=== PATIENT | female | born 1965 | race Caucasian/White ===

== ENCOUNTER 2017-06-26 19:01 | Emergency (ER) | payer SELFPAY ==
[~2017-06-26 19:01] MED LIST: BYST10TA2 PO; CLON.1 PO; MECL12.574 PO; VENTAER INH; ZOFR4TAB3 SL
[2017-06-26 19:13] VITALS: BP 140/67; PULSE 93; RESP 20; TEMP 97.7; O2SAT 98
[2017-06-26] MEDS ORDERED: BYST10TA2 PO (19:29)
[2017-06-26] MEDS ORDERED: CLON0.1T PO (19:29)
[2017-06-26] MEDS ORDERED: ONDANSETRON ODT 4 MG TAB PO ONE (20:15)
[2017-06-26] MEDS ORDERED: ACETAMINOPHEN/HYDROcodone 325 MG/5 MG TAB PO ONE (20:15)
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
[2017-06-26] MEDS ORDERED: ROBA500T PO (21:22)
[2017-06-26] MEDS ORDERED: TRAM50TA PO (21:22)
[2017-06-26] MEDS ORDERED: IBUP1TAB7 PO (21:22)
[2017-06-26] MEDS ORDERED: ZOFR4TAB3 SL (21:43)
== END 2017-06-26 21:49 | disposition home or self-care (01) ==
LOC: PHEFT 19:01
DX: S16.1XXA Strain of muscle, fascia and tendon at neck level, initial encounter (principal); G44.319 Acute post-traumatic headache, not intractable; M54.5 Low back pain; M25.552 Pain in left hip; M25.562 Pain in left knee; I10 Essential (primary) hypertension; K21.9 Gastro-esophageal reflux disease without esophagitis; V49.50XA Passenger injured in collision with unspecified motor vehicles in traffic accident, initial encounter; Y92.481 Parking lot as the place of occurrence of the external cause
CPT/HCPCS: 70450; 72125; 72131